=== PATIENT | male | born 2005 | race African-American/Black ===

== ENCOUNTER 2024-12-27 19:54 | Emergency (ER) | payer SELFPAY ==
[~2024-12-27] VITALS: Ht 185.4 cm; Wt 71.0 kg
[2024-12-27 20:12] VITALS: BP 108/52; PULSE 80; RESP 16; TEMP 36.8; O2SAT 98
== END 2024-12-27 23:49 | disposition home or self-care (01) ==
LOC: ER 19:54
DX: S80.11XA Contusion of right lower leg, initial encounter (principal); V89.2XXA Person injured in unspecified motor-vehicle accident, traffic, initial encounter; Y93.89 Activity, other specified; Y92.410 Unspecified street and highway as the place of occurrence of the external cause; Y99.8 Other external cause status
CPT/HCPCS: 73590; 99283